=== PATIENT | female | born 1970 | race Caucasian/White ===

== ENCOUNTER 2016-11-12 08:15 | Emergency (ER) | payer OTHER ==
[~2016-11-12] VITALS: Ht 154.9 cm; Wt 67.2 kg
[~2016-11-12 08:15] MED LIST: BENTYL20 MG PO; DONNATAL1 TABLET PO; MOTRIN IB200 MG PO; NOHOMEMEDS; PHENERGAN25 MG PR; PROMETHAZINE HC25 M1 PO; PROMETHAZINE HC50 M1 PO; PROTONIX20 MG PO; PROTONIX40 MG PO; SEROQUEL200 MG PO; TYLENOL REGULA325 MG PO; ZOFRAN ODT4 MG PO; ZOFRAN4 MG PO
[2016-11-12 10:32] LABS: HEMATOCRIT 45.2 % (36.0-46.0); MCH 31.7 PG (29.0-34.0); MCHC 33.8 G/DL (30.0-36.0); MCV 93.6 FL (83-99); MEAN PLAT.VOLUME 10.3 uM^3 (9.5-12.4); PLATELET COUNT 264 K/uL (156-360); RBC DIS.WIDTH-CV 12.8 % (11.8-14.6); RBC DIS.WIDTH-SD 44.1 % (39-53); RED BLOOD COUNT 4.83 M/uL (3.80-5.20); WHITE BLOOD COUNT 7.8 K/uL (4.1-10.2)
[2016-11-12 10:46] LABS: CHLORIDE 104 mEq/L (99-109); SODIUM 138 mEq/L (136-147)
[2016-11-12 10:48] LABS: GLUCOSE 116 mg/dL (70-99)
[2016-11-12 10:50] LABS: ANION GAP 14 MEQ/L (2-14); TOTAL BILIRUBIN 0.6 mg/dL (0.0-1.0)
[2016-11-12 10:52] LABS: ALKALINE PHOSPHATASE 83 IU/L (3-129); GFR ESTIMATE (CALCULATED) > 59 mL/min/
[2016-11-12 10:53] LABS: UREA NITROGEN (BUN) 15 mg/dL (9-23)
[2016-11-12 10:55] LABS: LIPASE 10 U/L (1.0-51.0)
[2016-11-12 11:22] LABS: ADD MIUA? YES; BILIRUBIN NEGATIVE; BLOOD NEGATIVE; COLOR AMBER ((YELLOW)); GLUCOSE (STRIP) NEGATIVE; KETONES 5; LEUKOCYTES TRACE; NITRITE NEGATIVE; PROTEIN (STRIP) >=500; SPECIFIC GRAVITY 1.034 (1.000-1.030); UROBILINOGEN 0.2 MG/DL (0.2-1.0)
[2016-11-12 11:34] LABS: QUANTITATIVE HCG < 4.0 MIU/ML
[2016-11-12 11:50] LABS: AMORPHOUS URATES CRYSTALS 3+; BACTERIA 1+ /HPF; CRYSTALS PRESENT; EPITHELIAL CELLS 1+ /HPF; MUCUS RARE /LPF; RED BLOOD CELLS NONE SEEN /HPF (0-5); WHITE BLOOD CELLS 0-5 /HPF (0-5)
[2016-11-12] MEDS ORDERED: BENTYL20 MG PO (12:35)
[2016-11-12] MEDS ORDERED: ZOFRAN ODT4 MG PO (12:35)
[2016-11-12] MEDS ORDERED: MACROBID100 MG PO (12:35)
[2016-11-12 13:46] VITALS: BP 118/60
== END 2016-11-12 13:47 | disposition home or self-care (01) ==
LOC: EME 08:15
PROVIDERS: Nurse Practitioner Family
DX: N39.0 Urinary tract infection, site not specified (principal); R11.2 Nausea with vomiting, unspecified; Z79.891 Long term (current) use of opiate analgesic; Z87.440 Personal history of urinary (tract) infections
CPT/HCPCS: 74000; 80053; 81003; 83690; 84702; 85027; 87086; 99281; 99285; J0500; J1885

== ENCOUNTER 2017-06-14 15:05 | Emergency (ER) | payer OTHER ==
[~2017-06-14] VITALS: Ht 154.9 cm; Wt 61.5 kg
[~2017-06-14 15:05] MED LIST changes: +MACROBID100 MG PO
[2017-06-14 16:18] LABS: HEMATOCRIT 42.6 % (36.0-46.0); MCH 32.2 PG (29.0-34.0); MCHC 33.6 G/DL (30.0-36.0); MCV 95.9 FL (83-99); MEAN PLAT.VOLUME 10.8 uM^3 (9.5-12.4); PLATELET COUNT 228 K/uL (156-360); RBC DIS.WIDTH-CV 12.8 % (11.8-14.6); RBC DIS.WIDTH-SD 45.5 % (39-53); RED BLOOD COUNT 4.44 M/uL (3.80-5.20); WHITE BLOOD COUNT 6.4 K/uL (4.1-10.2)
[2017-06-14 16:25] LABS: CHLORIDE 108 mEq/L (99-109); POTASSIUM 3.8 mEq/L (3.7-5.4); SODIUM 139 mEq/L (136-147)
[2017-06-14 16:27] LABS: GLUCOSE 89 mg/dL (70-99)
[2017-06-14 16:28] LABS: ANION GAP 8 MEQ/L (2-14)
[2017-06-14 16:31] LABS: GFR ESTIMATE (CALCULATED) > 59 mL/min/
[2017-06-14 16:32] LABS: UREA NITROGEN (BUN) 12 mg/dL (9-23)
[2017-06-14 16:37] LABS: TROP-I INTERPRETATION NEGATIVE; TROPONIN-I < 0.01 ng/mL (0.0-0.30)
[2017-06-14 17:25] LABS: QUANTITATIVE HCG < 4.0 MIU/ML
[2017-06-14 18:42] LABS: TROP-I INTERPRETATION NEGATIVE; TROPONIN-I < 0.01 ng/mL (0.0-0.30)
[2017-06-14] MEDS ORDERED: NAPROSYN500 MG PO (19:14)
[2017-06-14 19:25] VITALS: BP 116/58
== END 2017-06-14 19:26 | disposition home or self-care (01) ==
LOC: EME 15:05
PROVIDERS: Nurse Practitioner Family
DX: R07.89 Other chest pain (principal); F17.210 Nicotine dependence, cigarettes, uncomplicated; J45.909 Unspecified asthma, uncomplicated; F32.9 Major depressive disorder, single episode, unspecified; F41.9 Anxiety disorder, unspecified; Z82.49 Family history of ischemic heart disease and other diseases of the circulatory system; Z87.440 Personal history of urinary (tract) infections
CPT/HCPCS: 71020; 80048; 84484; 84702; 85027; 93005; 99281; 99284